=== PATIENT | male | born 1950 | race Caucasian/White ===

== ENCOUNTER 2018-11-27 08:13 | Outpatient (CLI) | payer OTHER | END 2018-11-27 23:59 | disposition home or self-care (01) | LOC: CARD 08:13 | PROVIDERS: ATTEND Nurse Practitioner Family | DX: R94.01 Abnormal electroencephalogram [EEG] (principal); G40.209 Localization-related (focal) (partial) symptomatic epilepsy and epileptic syndromes with complex partial seizures, not intractable, without status epilepticus; Z98.890 Other specified postprocedural states | CPT/HCPCS: 95819 ==